=== PATIENT | male | born 1950 | race Caucasian/White ===

== ENCOUNTER 2017-12-14 12:57 | Day surgery (SDC) | payer MEDICARE ==
[~2017-12-14 12:57] MED LIST: LISI10TA4 PO
[2017-12-14] MEDS ORDERED: fentaNYL/PF 50MCG/1 ML 2ML syringe ONE (13:19)
[2017-12-14] MEDS ORDERED: LIDOcaine Viscous 15ml cup ONE (13:19)
[2017-12-14] MEDS ORDERED: midazolam 2 mg/2 ml injection ONE (13:19)
[2017-12-14 13:27] VITALS: BP 140/84
[2017-12-14 13:42] VITALS: BP 108/69
[2017-12-14 13:51] VITALS: BP 99/64
[2017-12-14 14:00] VITALS: BP 97/59
[2017-12-14 14:10] VITALS: BP 103/74
== END 2017-12-14 18:30 | disposition home or self-care (01) ==
LOC: GI LAB 12:57
PROVIDERS: ATTEND Internal Medicine Gastroenterology
DX: K22.2 Esophageal obstruction (principal); K44.9 Diaphragmatic hernia without obstruction or gangrene
CPT/HCPCS: 43249; C1726; J2250; J3010; J7030; A4620; G0500

== ENCOUNTER 2018-01-04 11:56 | Day surgery (SDC) | payer MEDICARE ==
[~2018-01-04] VITALS: Ht 175.3 cm; Wt 73.6 kg
[2018-01-04 12:05] VITALS: BP 149/88
[2018-01-04] MEDS ORDERED: fentaNYL/PF 50MCG/1 ML 2ML syringe ONE (12:33)
[2018-01-04] MEDS ORDERED: MIDAZolam 5mg/ml 2ml vial ONE (12:34)
[2018-01-04] MEDS ORDERED: LIDOcaine Viscous 15ml cup ONE (12:34)
[2018-01-04 13:10] VITALS: BP 123/75
[2018-01-04 13:20] VITALS: BP 109/58
[2018-01-04 13:30] VITALS: BP 109/56
== END 2018-01-04 13:57 | disposition home or self-care (01) ==
LOC: GI LAB 11:56
PROVIDERS: ATTEND Internal Medicine Gastroenterology
DX: K44.9 Diaphragmatic hernia without obstruction or gangrene (principal); K22.2 Esophageal obstruction; I10 Essential (primary) hypertension; F32.9 Major depressive disorder, single episode, unspecified; F41.9 Anxiety disorder, unspecified; Z86.73 Personal history of transient ischemic attack (TIA), and cerebral infarction without residual deficits; Z98.890 Other specified postprocedural states; Z79.899 Other long term (current) drug therapy
CPT/HCPCS: 43249; C1726; G0500; J2250; J3010; J7030; A4620

== ENCOUNTER 2018-05-04 09:41 | Emergency (ER) | payer MEDICARE ==
[~2018-05-04] VITALS: Ht 175.3 cm; Wt 71.4 kg
[2018-05-04 11:53] LABS: BASOPHILS % (AUTO) 0.3 % (0-1); EOSINOPHILS # (AUTO) 0.2 X10'3 (0-0.9); EOSINOPHILS % (AUTO) 5.1 % (0-6); HEMOGLOBIN 15.8 g/dl (14.0-17.9); LYMPHOCYTES # (AUTO) 0.9 X10'3 (1.1-4.8); LYMPHOCYTES % (AUTO) 19.6 % (21-51); MEAN CORPUSCULAR HEMOGLOBIN 30.6 PG (27.0-31.0); MEAN CORPUSCULAR VOLUME 92.8 FL (78-98); MEAN PLATELET VOLUME 7.8 FL (7.4-10.4); MONOCYTES # (AUTO) 0.3 X10'3 (0-0.9); MONOCYTES % (AUTO) 6.7 % (2-12); NEUTROPHILS # (AUTO) 3.2 X10'3 (1.8-7.7); NEUTROPHILS % (AUTO) 68.3 % (42-75); PLATELET COUNT 170 X10'3 (140-440); RED BLOOD COUNT 5.17 X10'6 (4.70-6.10); RED CELL DISTRIBUTION WIDTH 15.6 % (11.5-14.5); WHITE BLOOD COUNT 4.7 X10'3 (4.5-11.0)
[2018-05-04 12:07] LABS: ALANINE AMINOTRANSFERASE 46 U/L (12-78); ALBUMIN/GLOBULIN RATIO 1.1 (1.1-1.5); ALKALINE PHOSPHATASE 76 IU/L (46-116); ANION GAP 6 (8-16); ASPARTATE AMINO TRANSFERASE 23 U/L (10-37); BILIRUBIN,TOTAL 0.8 MG/DL (0.1-1.0); BLOOD UREA NITROGEN 15 MG/DL (7-18); BUN/CREATININE RATIO 14.2 (5.4-32.0); CALCIUM 9.3 MG/DL (8.5-10.1); CHLORIDE 107 MMOL/L (99-107); CREATININE 1.06 MG/DL (0.60-1.10); GLUCOSE 90 MG/DL (70-104); LIPASE < 50 U/L (73-393); POTASSIUM 4.4 MMOL/L (3.5-5.1); SODIUM 144 MMOL/L (135-145); TOTAL CARBON DIOXIDE 31.5 MMOL/L (24-32); TOTAL PROTEIN 7.8 G/DL (6.4-8.2); eGFR 70 ML/MIN
[2018-05-04] MEDS ORDERED: acetaminophen 650mg rectal suppository RC ONE (13:05)
[2018-05-04] MEDS ORDERED: normal saline 1000ML IV soln IVB ONE (13:05)
[2018-05-04] MEDS ORDERED: vancomycin/NS 1 GM ADD-VANTAGE 250 ML IV ONE (13:05)
[2018-05-04] MEDS ORDERED: normal saline 1000ml 1,000 ML IV SCH (13:31)
[2018-05-04] MEDS ORDERED: MIDAZolam 5mg/5ml vial IV PRN (13:35)
[2018-05-04] MEDS ORDERED: fentaNYL/PF 50MCG/1 ML 2ML syringe IV PRN (13:35)
[2018-05-04 15:10] VITALS: BP 140/76
[2018-05-04] MEDS ORDERED: MIDAZolam 5mg/5ml vial ONE ×2 (15:25→15:26)
[2018-05-04] MEDS ORDERED: fentaNYL/PF 50MCG/1 ML 2ML syringe ONE (15:25)
[2018-05-04] MEDS ORDERED: LIDOcaine Viscous 15ml cup ONE (15:26)
[2018-05-04 16:21] VITALS: BP 108/58
[2018-05-04 16:31] VITALS: BP 101/66
[2018-05-04 16:41] VITALS: BP 117/71
[2018-05-04 16:51] VITALS: BP 108/60
[2018-05-04 18:59] VITALS: BP 144/92
== END 2018-05-04 19:59 | disposition home or self-care (01) ==
LOC: ER 09:42
DX: T18.128A Food in esophagus causing other injury, initial encounter (principal); I10 Essential (primary) hypertension; K21.9 Gastro-esophageal reflux disease without esophagitis; Z79.899 Other long term (current) drug therapy; W45.8XXA Other foreign body or object entering through skin, initial encounter; Y93.89 Activity, other specified; Y92.89 Other specified places as the place of occurrence of the external cause; Y99.8 Other external cause status
CPT/HCPCS: 36415; 43249; 80053; 83690; 85025; 99152; 99285; C1726; J2250; J3010; J7030; A4620; G0500

== ENCOUNTER 2018-08-10 11:30 | Emergency (ER) | payer MEDICARE, OTHER ==
[~2018-08-10] VITALS: Ht 175.3 cm; Wt 72.4 kg
[2018-08-10] MEDS ORDERED: normal saline 1000ML IV soln IVB ONE (13:00)
[2018-08-10 13:22] LABS: BASOPHILS % (AUTO) 0.6 % (0-1); EOSINOPHILS # (AUTO) 0.2 X10'3 (0-0.9); EOSINOPHILS % (AUTO) 6.1 % (0-6); HEMOGLOBIN 14.3 g/dl (14.0-17.9); LYMPHOCYTES # (AUTO) 0.8 X10'3 (1.1-4.8); LYMPHOCYTES % (AUTO) 23.2 % (21-51); MEAN CORPUSCULAR HEMOGLOBIN 31.4 PG (27.0-31.0); MEAN CORPUSCULAR HGB CONC 33.1 % (33.0-36.5); MEAN CORPUSCULAR VOLUME 94.8 FL (78-98); MONOCYTES # (AUTO) 0.3 X10'3 (0-0.9); MONOCYTES % (AUTO) 8.6 % (2-12); NEUTROPHILS # (AUTO) 2.2 X10'3 (1.8-7.7); NEUTROPHILS % (AUTO) 61.5 % (42-75); PLATELET COUNT 198 X10'3 (140-440); RED BLOOD COUNT 4.54 X10'6 (4.70-6.10); RED CELL DISTRIBUTION WIDTH 14.5 % (11.5-14.5); WHITE BLOOD COUNT 3.6 X10'3 (4.5-11.0)
[2018-08-10 13:35] LABS: ALANINE AMINOTRANSFERASE 42 U/L (12-78); ALBUMIN 3.7 G/DL (3.4-5.0); ALBUMIN/GLOBULIN RATIO 1.1 (1.1-1.5); ALKALINE PHOSPHATASE 69 IU/L (46-116); ANION GAP 4 (8-16); ASPARTATE AMINO TRANSFERASE 24 U/L (10-37); BILIRUBIN,TOTAL 0.6 MG/DL (0.1-1.0); BLOOD UREA NITROGEN 13 MG/DL (7-18); CALCIUM 8.7 MG/DL (8.5-10.1); CHLORIDE 107 MMOL/L (99-107); CREATININE 0.93 MG/DL (0.60-1.10); GLUCOSE 97 MG/DL (70-104); LIPASE 53 U/L (73-393); POTASSIUM 4.8 MMOL/L (3.5-5.1); SODIUM 143 MMOL/L (135-145); TOTAL CARBON DIOXIDE 31.7 MMOL/L (24-32); eGFR 81 ML/MIN
[2018-08-10 14:43] LABS: CLARITY,URINE CLEAR (Clear); COLOR,URINE YELLOW (Yellow); GLUCOSE, URINE NEGATIVE (Neg); KETONES,URINE NEGATIVE (Neg); LEUKOCYTE ESTERASE ,URINE NEGATIVE (Neg); NITRITES, URINE NEGATIVE (Neg); OCCULT BLOOD,URINE NEGATIVE (Neg); PROTEIN,URINE NEGATIVE (Neg); UROBILINOGEN,URINE 0.2 E.U/dL (0.2-1.0)
[2018-08-10 14:44] LABS: UA COLLECTION TYPE CLN CATCH MIDSTREAM
[2018-08-10] MEDS ORDERED: fentaNYL/PF 50MCG/1 ML 2ML syringe ONE (15:44)
[2018-08-10] MEDS ORDERED: MIDAZolam 5mg/5ml vial ONE ×2 (15:45→15:46)
[2018-08-10] MEDS ORDERED: LIDOcaine Viscous 15ml cup ONE (15:45)
[2018-08-10 15:49] VITALS: BP 118/78
[2018-08-10] MEDS ORDERED: normal saline 1000ml 1,000 ML IV SCH (16:13)
[2018-08-10] MEDS ORDERED: midazolam 2 mg/2 ml injection IV PRN (16:15)
[2018-08-10] MEDS ORDERED: LIDOcaine Viscous 15ml cup PO ONE (16:15)
[2018-08-10] MEDS ORDERED: fentaNYL/PF 50MCG/1 ML 2ML syringe IV PRN (16:15)
[2018-08-10] MEDS ORDERED: simethicone 40mg/0.6ml oral drops 30ml MC ONE (16:15)
[2018-08-10 17:00] VITALS: BP 116/50
[2018-08-10 17:10] VITALS: BP 118/62
[2018-08-10 17:20] VITALS: BP 114/59
[2018-08-10 17:30] VITALS: BP 123/70
[2018-08-10 19:00] VITALS: BP 149/93
== END 2018-08-10 19:05 | disposition home or self-care (01) ==
LOC: ER 11:31
DX: K22.2 Esophageal obstruction (principal); R13.10 Dysphagia, unspecified; I10 Essential (primary) hypertension; K21.9 Gastro-esophageal reflux disease without esophagitis; Z86.73 Personal history of transient ischemic attack (TIA), and cerebral infarction without residual deficits; Z98.890 Other specified postprocedural states; Z79.899 Other long term (current) drug therapy
CPT/HCPCS: 36415; 43239; 80053; 81003; 83690; 85025; 99284; J2250; J3010; J7030; 99152; 99285; A4620